=== PATIENT | male | born 1960 | race Hispanic/Latino ===

== ENCOUNTER 2019-09-22 | Emergency (ER) | payer BC, OTHER ==
--- NOTE | 2019-09-22 13:58 | EDPHYS ---
Physician Documentation [facility] Name: Koko Laguerre Age: 59 yrs Sex: Male : 1960 Arrival Date: 09/22/2019 Time: 13:05 Bed 24 Private MD: ED Physician Oli Solis HPI: 09/21 13:47 This 59 yrs old Male presents to ER via Ambulatory with complaints of Ear ps1 Problem, cough, sore throat. 13:47 Onset 10 days ago. patient has been seen and evaluated previously at [facility]. ps1 Treated with throat spray. No fever. States that he has worsening of symptoms. COVID- epidemic. Does not meet testing criteria. . Historical: - Allergies: 13:39 No Known Allergies; ph - Home Meds: 13:39 None [Active]; ph - PMHx: 13:39 None; ph - PSHx: 13:39 None; ph - Immunization history:: Adult Immunizations unknown. - Social history:: Smoking status: Patient denies any tobacco usage or history of. ROS: 13:47 Constitutional: Negative for fever, chills, and weight loss, Eyes: Negative for injury, ps1 pain, redness, and discharge. 13:47 Cardiovascular: Negative for chest pain, palpitations, and edema, Abdomen/GI: Negative for abdominal pain, nausea, vomiting, diarrhea, and constipation, MS/Extremity: Negative for injury and deformity, Skin: Negative for injury, rash, and discoloration. 13:47 ENT: Positive for hearing loss, sinus congestion, sore throat. 13:47 Respiratory: Positive for cough, with no reported sputum. Exam: 13:47 Constitutional: This is a well developed, well nourished patient who is awake, alert, ps1 and in no acute distress. Head/Face: Normocephalic, atraumatic. 13:47 ENT: TM's: bulging, erythema, on the left, loss of bony landmarks, on the left. 13:47 Cardiovascular: 13:47 Cardiovascular: Rate: normal. 13:47 Respiratory: the patient does not display signs of respiratory distress. 13:47 Skin: Appearance: Color: normal in color. Vital Signs: 13:37 BP 152 / 89; Pulse 54; Resp 18; Temp 97.8; Pulse Ox 97% on R/A; Weight 77.11 kg; ph 14:18 BP 135 / 91; Pulse 68; Resp 17; Pulse Ox 96% on R/A; vc MDM: 13:47 Data reviewed: vital signs, nurses notes, and as a result, I will discharge patient. ps1 13:57 Patient medically screened. ps1 Administered Medications: No medications were administered Disposition: 09/22/19 13:57 Discharged to Home. Impression: Left otitis, Bronchitis, not specified as acute or chronic, COVID, no testing performed. . - Condition is Stable. - Discharge Instructions: Otitis Media, Adult, Upper Respiratory Infection, Adult. - Prescriptions for Zithromax Z- Padilla 250 mg Oral Tablet - take 1 tablet by ORAL route as directed for 5 days Day 1 - take two (2) tablets one time. Day 2, 3, 4 , 5 take one (1) tablet once daily.; 6 tablet. - Medication Reconciliation Form, Thank You Letter, Antibiotic Education, Prescription Opioid Use form. - Follow up: Emergency Department; When: As needed; Reason: Fever > 102 F, Trouble breathing, Worsening of condition. - Problem is an ongoing problem. - Symptoms are unchanged. Signatures: Cheryl Sherman RN RN ph Oli Solis MD MD ps1 Karie Atwood RN RN vc Corrections: (The following items were deleted from the chart) 14:19 13:57 09/22/2019 13:57 Discharged to Home. Impression: Left otitis; Bronchitis, not vc specified as acute or chronic; COVID, no testing performed. . Condition is Stable. Forms are Medication Reconciliation Form, Thank You Letter, Antibiotic Education, Prescription Opioid Use. Follow up: Emergency Department; When: As needed; Reason: Fever > 102 F, Trouble breathing, Worsening of condition. Problem is an ongoing problem. Symptoms are unchanged. ps1
--- NOTE | 2019-09-22 13:58 | ER ---
Nurse's Notes [facility] Name: Koko Laguerre Age: 59 yrs Sex: Male : 1960 Arrival Date: 09/22/2019 Time: 13:05 Bed 24 Private MD: Diagnosis: Left otitis;Bronchitis, not specified as acute or chronic;COVID, no testing performed. Presentation: 09/21 13:37 Chief complaint: Patient states: Sore throat x 10 days, R neck and ear pain, cough, SOB ph and chest pressure that began 2 days ago, denies chills or fever. Coronavirus screen: The patient has NOT traveled to a country currently being monitored by the CDC within the last 14 days. The patient has NOT had contact with any known and/or suspected case of coronavirus. Ebola Screen: No symptoms or risks identified at this time. Initial Sepsis Screen: Does the patient meet any 2 criteria? No. Patient's initial sepsis screen is negative. Does the patient have a suspected source of infection? No. Patient's initial sepsis screen is negative. Risk Assessment: Do you want to hurt yourself or someone else? Patient reports no desire to harm self or others. 13:37 Method Of Arrival: Ambulatory ph 13:37 Acuity: BERT 4 ph 14:18 Onset of symptoms is unknown. vc Triage Assessment: 14:16 General: Appears in no apparent distress. Behavior is calm, cooperative, appropriate vc for age. Pain: Complains of pain in left ear. Historical: - Allergies: 13:39 No Known Allergies; ph - Home Meds: 13:39 None [Active]; ph - PMHx: 13:39 None; ph - PSHx: 13:39 None; ph - Immunization history:: Adult Immunizations unknown. - Social history:: Smoking status: Patient denies any tobacco usage or history of. Screenin:16 Abuse screen: Denies threats or abuse. Nutritional screening: No deficits noted. vc Tuberculosis screening: No symptoms or risk factors identified. Fall Risk None identified. Assessment: 14:15 General: Appears in no apparent distress. comfortable, ill, Behavior is calm, vc cooperative, appropriate for age. Pain: Complains of pain in left ear. Neuro: Level of Consciousness is awake, alert, obeys commands, Oriented to person, place, time, situation, Appropriate for age. Cardiovascular: Patient's skin is warm and dry. Respiratory: Respiratory effort is even, unlabored, Respiratory pattern is regular, symmetrical. GI: No signs and/or symptoms were reported involving the gastrointestinal system. : EENT: Reports pain in left ear. Vital Signs: 13:37 BP 152 / 89; Pulse 54; Resp 18; Temp 97.8; Pulse Ox 97% on R/A; Weight 77.11 kg; ph 14:18 BP 135 / 91; Pulse 68; Resp 17; Pulse Ox 96% on R/A; vc ED Course: 13:05 Patient arrived in ED. ag5 13:30 Oli Solis MD is Attending Physician. ps1 13:39 Triage completed. ph 13:40 Arm band placed on Patient placed in an exam room. ph 14:00 Patient has correct armband on for positive identification. Bed in low position. Call vc light in reach. Pulse ox on. NIBP on. 14:16 Karie Atwood RN is Primary Nurse. vc 14:17 No provider procedures requiring assistance completed. Patient did not have IV access vc during this emergency room visit. Administered Medications: No medications were administered Outcome: 13:57 Discharge ordered by . ps1 14:17 Discharged to home ambulatory. vc 14:17 Condition: good 14:17 Discharge instructions given to patient, Instructed on discharge instructions, follow up and referral plans. medication usage, Demonstrated understanding of instructions, follow-up care, medications, Prescriptions given X 1. 14:19 Patient left the ED. vc Signatures: Cheryl Sherman RN RN Oli Solis MD MD ps1 Arnulfo Mccull[facility] Karie Atwood RN RN vc
== END 2019-09-22 14:19 | disposition home or self-care (01) ==
DX: J40 Bronchitis, not specified as acute or chronic (principal)
CPT/HCPCS: 99283